=== PATIENT | female | born 1930 | race Caucasian/White ===

== ENCOUNTER 2016-08-17 01:13 | Emergency (ER) | payer OTHER ==
[~2016-08-17] VITALS: Ht 170.2 cm; Wt 47.7 kg
[2016-08-17 01:49] VITALS: Ht 170.2 cm; Wt 47.7 kg
[2016-08-17] MEDS ORDERED: morphine 4 MG/ML VIAL IV STA (01:52)
[2016-08-17] MEDS ORDERED: ONDANSETRON 4 MG INJ IV STA (01:52)
[2016-08-17] MEDS ORDERED: SOD CHLORIDE 0.9% 500 ML IV STA (01:52)
--- NOTE | 2016-08-17 02:23 | RADRPT ---
PROCEDURE: Chest. CLINICAL INDICATION: Chest pain. TECHNIQUE: Single frontal view of the chest was obtained. COMPARISON: None. FINDINGS: There is a left-sided pacemaker. The cardiac silhouette is enlarged. The aortic arch is calcified. There is a calcified granuloma within the left upper lobe. There is no focal consolidation, vascu lar congestion or pleural effusion. There is no pneumothorax. IMPRESSION: Moderate cardiomegaly. Aortic atherosclerosis. .Diogo Laureano MD, MD Date Time Electronically viewed and signed by .Diogo Laureano MD, MD on 08/17/2016 02:23 .T/
[2016-08-17 02:30] LABS: ADD SCAN DIFF NO
[2016-08-17 02:34] LABS: ABNORMAL IP MESSAGE 1; BASOPHILS % 0.1 % (0.0-2.0); HEMATOCRIT 43.1 % (37.0-47.0); HEMOGLOBIN 13.7 g/dl (12.0-16.0); LYMPHOCYTES # 0.5 10^3/ul (0.8-2.9); LYMPHOCYTES % 4.7 % (15.0-51.0); MEAN CORPUSCULAR HEMOGLOBIN 30.1 pg (29.0-33.0); MEAN CORPUSCULAR HGB CONC 31.8 g/dl (32.0-37.0); MEAN CORPUSCULAR VOLUME 94.7 fl (82.0-101.0); MEAN PLATELET VOLUME 10.5 fl (7.4-10.4); MONOCYTE # 0.3 10^3/ul (0.3-0.9); MONOCYTES % 3.1 % (0.0-11.0); NEUTROPHIL # 9.6 10^3/ul (1.6-7.5); NEUTROPHILS % 91.9 % (39.0-77.0); PLATELET COUNT 291 10^3/UL (140-415); RED BLOOD COUNT 4.55 10^6/ul (4.20-5.40); RED CELL DISTRIBUTION WIDTH 12.9 % (11.5-14.5); WHITE BLOOD COUNT 10.4 10^3/ul (4.8-10.8)
[2016-08-17 02:43] LABS: INR 0.89; PT RATIO 0.9
[2016-08-17 02:44] LABS: PARTIAL THROMBOPLASTIN TIME 25.8 Sec (25.0-35.0)
[2016-08-17 02:57] LABS: ALBUMIN 4.4 g/dl (3.3-4.9); POTASSIUM 3.9 mmol/L (3.5-5.1)
[2016-08-17 02:59] LABS: BILIRUBIN,INDIRECT 0.2 mg/dl (0-1.1); BILIRUBIN,TOTAL 0.2 mg/dl (0.2-1.3); CREATININE 0.61 mg/dl (0.44-1.00)
[2016-08-17 03:00] LABS: ALBUMIN/GLOBULIN RATIO 1.33; CALCIUM 9.6 mg/dl (8.4-10.2); TOTAL PROTEIN 7.7 g/dl (6.1-8.1)
[2016-08-17 03:03] LABS: ADD UMIC YES; URINE BILIRUBIN (Dip) NEGATIVE (NEGATIVE); URINE BLOOD (Dip) NEGATIVE (NEGATIVE); URINE COLOR LT. YELLOW (YELLOW); URINE KETONES (Dip) 15 (NEGATIVE); URINE LEUKOCYTE ESTERASE (Dip) NEGATIVE (NEGATIVE); URINE NITRITE (Dip) NEGATIVE (NEGATIVE); URINE TOTAL PROTEIN (Dip) TRACE (NEGATIVE); URINE UROBILINOGEN (Dip) 0.2 E.U./dL (0.1-1.0)
[2016-08-17 03:10] LABS: TROPONIN-I 0.016 ng/ml (0.00-0.12)
--- NOTE | 2016-08-17 03:14 | RADRPT ---
PROCEDURE: CT Abdomen and pelvis without contrast. CLINICAL INDICATION: Abdominal pain. TECHNIQUE: CT scan of the abdomen and pelvis was performed on a multi-detector high-resolution CT scanner. Contiguous axial images were obtained from the lung bases to the ischial tuberosities wit hout intravenous contrast. Coronal and sagittal reformatted images were also obtained. Images were reviewed on the PACS workstation. One or more of the following dose reduction techniques were used: - Automated exposure control. - Adjustment of the mA and/or kV according to patient size. - Use of iterative reconstruction technique. Exam CTD/vol = 4.10 mGy. Total exam DLP = 198.61 mGy-cm. COMPARISON: None. FINDINGS: Evaluation of the lung bases demonstrates mild right basilar atelectasis. The heart is enlarged. Abdomen: The liver is normal in size. There are small hypodense lesions within the liver measuring up to 6 mm in size which is too small to further characterize. There is no dilatation of the bilia ry tree. The gallbladder is not distended. The spleen, pancreas and bilateral adrenal glands are w ithin normal limits. Bilateral kidneys are normal in size with no contour deforming mass identified . There is no radiopaque renal or ureteral calculus identified. There is no hydronephrosis or hydr oureter. There is no retroperitoneal adenopathy. The abdominal aorta is of normal caliber with sca ttered atherosclerotic calcifications. There is no abnormal bowel wall thickening or distension. There is no bowel obstruction or free air . A normal appendix is identified. There is sigmoid diverticulosis without evidence of diverticuli tis. There is no ascites. Pelvis: The bladder is unremarkable. There are calcified uterine fibroids. There is a large cysti c structure within the pelvis measuring 12.6 x 10.4 cm. There is no significant pelvic adenopathy o r free fluid. Evaluation of the osseous structures demonstrates no suspicious lytic or blastic lesion. IMPRESSION: Large pelvic cyst measuring 12.6 x 10.4 cm. Calcified uterine fibroids. Sigmoid diverticulosis without evidence of diverticulitis. Vascular calcifications reflective of atherosclerosis. Mild to moderate cardiomegaly. .Diogo Laureano MD, MD Date Time Electronically viewed and signed by .Diogo Laureano MD, MD on 08/17/2016 03:14 .T/
[2016-08-17 03:22] LABS: SQUAMOUS EPITHELIAL CELL,UR FEW; URINE RBCS 0-2 /HPF (0)
--- NOTE | 2016-08-17 03:46 | ERD ---
ER Documentation Chief Complaint Date/Time DATE: 08/17/16 TIME: 03:45 Chief Complaint BROUGHT IN VIA EMS DUE TO ABDOMINAL PAIN, VOMITING, AND CONSTIPATION HPI This is an 85 female brought in by EMS secondary to abdominal pain vomiting and constipation. Patient says some abdominal pain for the past 2-3 days colicky nature mild to moderate intensity. Last bowel movement 2 days ago. Vomiting one episode of nonbilious. No other current issue ROS All systems reviewed and are negative except as per history of present illness. Allergies Allergies: Coded Allergies: Penicillins (Verified Allergy, Unknown, 08/17/16) alendronate sodium (Verified Allergy, Unknown, 08/17/16) cholecalciferol (vitamin D3) (Verified Allergy, Unknown, 08/17/16) erythromycin base (Verified Allergy, Unknown, 08/17/16) PMhx/Soc Hx Respiratory Disorders: Yes (COPD) Hx Cardiac Disorders: Yes (PACEMAKER ) Hx Miscellaneous Medical Probl: Yes (GERD) Hx Alcohol Use: No Hx Substance Use: No Hx Tobacco Use: No Smoking Status: Never smoker Physical Exam Vitals Vital Signs Date Time Temp Pulse Resp B/P Pulse Ox O2 Delivery O2 Flow Rate FiO2 08/17/16 01:49 98.1 78 16 190/140 100 Physical Exam Const: [] Head: Atraumatic Eyes: Normal Conjunctiva ENT: Normal External Ears, Nose and Mouth. Neck: Full range of motion..~ No meningismus. Resp: Clear to auscultation bilaterally Cardio: Regular rate and rhythm, no murmurs Abd: Soft, non tender, non distended. Normal bowel sounds Skin: No petechiae or rashes Back: No midline or flank tenderness Ext: No cyanosis, or edema Neur: Awake and alert Psych: Normal Mood and Affect Result Diagram: 08/17/1620908/17/160 Results 24 hrs Laboratory Tests Test 08/17/16 02:10 08/17/16 02:35 Activated Partial Thromboplast Time 25.8Sec Alanine Aminotransferase (ALT/SGPT) 35IU/L Albumin 4.4g/dl Albumin/Globulin Ratio 1.33 Alkaline Phosphatase 123IU/L Anion Gap 20 Aspartate Amino Transf (AST/SGOT) 42IU/L Basophils # 0.010^3/ul Basophils % 0.1% Blood Urea Nitrogen 24mg/dl Calcium Level 9.6mg/dl Carbon Dioxide Level 30mmol/L Chloride Level 95mmol/L Creatinine 0.61mg/dl Direct Bilirubin 0.00mg/dl Eosinophils # 0.010^3/ul Eosinophils % 0.0% Globulin 3.30g/dl Glucose Level 213mg/dl Hematocrit 43.1% Hemoglobin 13.7g/dl INR International Normalized Ratio 0.89 Indirect Bilirubin 0.2mg/dl Lipase 73U/L Lymphocytes # 0.510^3/ul Lymphocytes % 4.7% Mean Corpuscular Hemoglobin 30.1pg Mean Corpuscular Hemoglobin Concent 31.8g/dl Mean Corpuscular Volume 94.7fl Mean Platelet Volume 10.5fl Monocytes # 0.310^3/ul Monocytes % 3.1% Neutrophils # 9.610^3/ul Neutrophils % 91.9% Nucleated Red Blood Cells # 0.010^3/ul Nucleated Red Blood Cells % 0.0/100WBC Platelet Count 14434^3/UL Potassium Level 3.9mmol/L Prothrombin Time 12.0Sec Prothrombin Time Ratio 0.9 Red Blood Count 4.5510^6/ul Red Cell Distribution Width 12.9% Sodium Level 141mmol/L Total Bilirubin 0.2mg/dl Total Protein 7.7g/dl Troponin I 0.016ng/ml White Blood Count 10.410^3/ul Urine Amorphous Urates MANY Urine Bilirubin NEGATIVE Urine Clarity SLIGHTLY CLOUDY Urine Color LT. YELLOW Urine Glucose 0.5%% Urine Hemoglobin NEGATIVE Urine Ketones 15 Urine Leukocyte Esterase NEGATIVE Urine Microscopic RBC 0-2/HPF Urine Microscopic WBC 0-2/HPF Urine Nitrite NEGATIVE Urine Specific [place] 1.015 Urine Squamous Epithelial Cells FEW Urine Total Protein TRACE Urine Urobilinogen 0.2 E.U./dL Urine pH 7.0 Current Medications Medications (Trade) Dose Ordered Sig/Janine Route PRN Reason Start Time Stop Time Status Last Admin Dose Admin Sodium Chloride (NS) 500 ml @ 500 mls/hr Q1H STAT IV 08/17/16 01:52 08/17/16 02:51 DC 08/17/16 02:38 Morphine Sulfate (morphine) 4 mg ONCE STAT IV 08/17/16 01:52 08/17/16 01:54 DC 08/17/16 02:39 Ondansetron HCl (Zofran Inj) 4 mg ONCE STAT IV 08/17/16 01:52 08/17/16 01:54 DC 08/17/16 02:39 Procedures/MDM EKG: Rate/Rhythm: Sinus tachycardia 104 bpm QRS, ST, T-waves: No changes consistent w/ acute ischemia Impression: No evidence of ischemia or arrhythmia Chest X-ray 1V Interpreted by me: Soft Tissue: No acute abnormalities Bones: No acute abnormalities Mediastinum/Cardiac Silhouette/Lungs: No acute abnormalities Medical decision making: Patient has abdominal pain of uncertain nonspecific etiology. At this point her pain is resolved. She will be discharged home with tramadol and Zofran. His return 8 hours for serial abdominal exams which he agrees. Departure Diagnosis: Primary Impression: Abdominal pain Abdominal location: generalized Qualified Code: R10.84 - Generalized abdominal pain Condition: Stable GURINDER LONG Aug 17, 2016 03:46
[2016-08-17] MEDS ORDERED: ONDA4TAB14 PO (03:47)
[2016-08-17] MEDS ORDERED: TRAM50TA2 PO (03:47)
[2016-08-17 04:28] VITALS: BP 125/72; PULSE 97; RESP 16
== END 2016-08-17 05:20 | disposition home or self-care (01) ==
LOC: E/R 01:13
DX: R10.84 Generalized abdominal pain (principal); J44.9 Chronic obstructive pulmonary disease, unspecified; R11.10 Vomiting, unspecified; Z95.0 Presence of cardiac pacemaker
CPT/HCPCS: 36415; 71010; 74176; 80053; 81001; 83690; 84484; 85025; 85610; 85730; 93005; 96374; 96375; 99285; J2270; J2405; J7040; 81003